=== PATIENT | male | born 1960 | race Caucasian/White ===

== ENCOUNTER 2022-06-11 11:48 | Emergency (ER) | payer SELFPAY ==
[2022-06-11 12:00] VITALS: BP 156/98; PULSE 62; RESP 16; TEMP 36.6; O2SAT 98
--- NOTE | 2022-06-11 12:09 | ED.DENTAL ---
HPI - Dental/Oral General Chief complaint: Dental/Oral Stated complaint: Swollen jaw Time Seen by Provider: 06/11/22 12:09 Mode of arrival: ambulatory Limitations: no limitations History of Present Illness HPI Narrative: 61-year-old male presents concern for right lower toothache to for several days, noticed right lower jaw swelling this morning. Reports he knows he has bad teeth, he has a great fear of the dentist and is tearful in the exam room. He reports he has been taking indomethacin for pain. He denies fever, trouble swallowing MD Complaint: tooth pain Related Data Home Medications Medication Instructions Recorded Confirmed allopurinol 300 mg tablet mg 06/11/22 amlodipine 5 mg tablet mg 06/11/22 clonidine HCl 0.2 mg tablet mg 06/11/22 gabapentin 600 mg tablet mg 06/11/22 glimepiride 4 mg tablet mg 06/11/22 indomethacin 50 mg capsule mg 06/11/22 lisinopril 5 mg tablet mg 06/11/22 pregabalin 100 mg capsule mg 06/11/22 rosuvastatin 20 mg tablet mg 06/11/22 Allergies Allergy/AdvReac Type Severity Reaction Status Date / Time No Known Allergies Allergy Verified 06/11/22 11:59 Review of Systems Review of Systems: CONSTITUTIONAL: Denies malaise, chills, sweats, or fever. EYES: Denies visual changes ENT: Denies rhinorrhea, congestion, sinus pain, otalgia or sore throat. Reports right lower dental pain and right jaw swelling CARDIOVASCULAR: Denies chest pain, palpitations RESPIRATORY: Denies cough or dyspnea. SKIN: Denies rash or itching. MUSCULOSKELETAL: Denies myalgia. NEUROLOGIC: Denies numbness, weakness, or headache. All systems reviewed & are unremarkable except as noted in HPI and below [facility] Comments At time of signature, agree with nursing past medical, surgical, social and family history. There is no relevant family history pertinent to the presenting complaint Exam Narrative: GENERAL: Nontoxic appearing and in no acute distress. HEAD: Normocephalic, atraumatic. EYES: PERRLA, sclera clear ENT: Nares clear, turbinates pink, no rhinorrhea or epistaxis. Mucous membranes moist. TM pearly aden with sharp light reflex bilaterally; no tragal tenderness. Oropharynx without erythema or lesions. Tonsils not enlarged and without exudate. Missing teeth, broken teeth, caries, marked right jaw swelling, swelling noted neck to the right lower gumline NECK: Supple. No lymphadenopathy. CHEST: No respiratory distress. Speaks in full sentences. HEART: Regular rate and rhythm. SKIN: Warm, dry, no visible rash. NEURO: Alert and oriented x3. PSYCH: Tearful Course Course Emergency Course: Patient is aware of diagnosis, understands and agrees to treatment plan. Anticipatory guidance given. Patient agrees to follow-up as directed and is aware of reasons to seek care at the emergency department. Portions of this record may have been created with voice recognition software Level of Care: Express Care Visit Vital Signs Vital signs: Vital Signs Temperature 98 F 06/11/22 12:00 Pulse Rate 62 06/11/22 12:00 Respiratory Rate 16 06/11/22 12:00 Blood Pressure 156/98 H 06/11/22 12:00 Pulse Oximetry 98 06/11/22 12:00 Oxygen Delivery Room Air 06/11/22 12:00 Temperature 98 F 06/11/22 12:00 Pulse Rate 62 06/11/22 12:00 Respiratory Rate 16 06/11/22 12:00 Blood Pressure 156/98 H 06/11/22 12:00 Pulse Oximetry 98 06/11/22 12:00 Oxygen Delivery Room Air 06/11/22 12:00 Reviewed. MDM - Dental/Oral MDM Narrative Medical decision making narrative: Patients pain and complaint coupled with physical findings are consistent with dentalgia. There are no focal signs of space occupying lesions that are compromising to the airway; no dysphagia, odynophagia, dysphonia, or dyspnea. No uvular deviation or soft palate edema. Patient is non-toxic appearing. The floor of the mouth is soft with no signs of Anthony's Angina; no induration below mandible, no neck pain. Patient is without tr
== END 2022-06-11 12:32 | disposition home or self-care (01) ==
PROVIDERS: Emergency Provider Nurse Practitioner; PCP Internal Medicine
DX: K04.7 Periapical abscess without sinus (principal); I10 Essential (primary) hypertension; E11.9 Type 2 diabetes mellitus without complications
CPT/HCPCS: 99213; G0463